=== PATIENT | female | born 1980 | race Caucasian/White ===

== ENCOUNTER 2017-05-16 07:17 | Emergency (ER) | payer OTHER ==
[2017-05-16] MEDS ORDERED: Ketorolac Tromethamine 30 MG/ML VIAL ONE (07:43)
[2017-05-16] MEDS ORDERED: Lorazepam 2 MG/ML VIAL ONE (07:43)
[2017-05-16] MEDS ORDERED: HYDROcodone/Acetaminophen 10/325 mg Tablet ONE (08:19)
== END 2017-05-16 08:43 | disposition home or self-care (01) ==
LOC: SCSER 07:17
DX: M54.6 Pain in thoracic spine (principal); E66.9 Obesity, unspecified; F41.9 Anxiety disorder, unspecified; F17.210 Nicotine dependence, cigarettes, uncomplicated
CPT/HCPCS: 96372; J1885; J2060